=== PATIENT | female | born 1940 | race Caucasian/White ===

== ENCOUNTER 2019-10-10 10:35 | Emergency (ER) | payer MEDICARE, SELFPAY ==
--- NOTE | ~2019-10-10 | XR_ITS ---
XR hand LT min 3V 10/10/2019 11:13 Indication: Left hand pain. Bruising. Procedure: 3 views left hand Comparison: 12/03/2010 Findings: Osteopenia. There is side plate and screws transfixing the distal aspect of the ulna. No ac lillie fracture or traumatic malalignment. No focal soft tissue abnormality. No radiopaque foreign cole smith. Impression: 1: No acute fracture. Reviewed, dictated and finalized at location A. Impression: 1: No acute fracture.
[2019-10-10 11:00] VITALS: BP 125/80; PULSE 65; RESP 16; TEMP 35.7; O2SAT 98
--- NOTE | 2019-10-10 11:29 | ED.UPPEXIN ---
HPI - Extremity Injury (Upper) General Chief Complaint: Extremity Injury, Upper Stated Complaint: right hand injury Time Seen by Provider: 10/10/19 11:13 Source: patient and RN notes reviewed Mode of arrival: ambulatory Limitations: no limitations History of Present Illness HPI narrative: Daughter presents patient today complaining of injury to the left hand. She believes the patient, who he does have some dementia, got her left hand caught between the wall and her wheelchair 1 week ago. Reports she had a bump on her hand at the base of her thumb at that time, but bruising and swelling has worsened since onset. Patient did not have pain for the first several days, but pain began 2 to 3 days ago. Patient takes aspirin, but has not been taking anything special for pain or swelling. They have been occasionally applying a cool rag. Daughter states that bruising is resolving. Related Data Home Medications Medication Instructions Recorded Confirmed aspirin 81 mg PO DAILY 10/10/19 10/10/19 cholecalciferol (vitamin D3) 100 mcg PO DAILY 10/10/19 10/10/19 [Vitamin D3] levothyroxine 125 mcg PO DAILY 10/10/19 10/10/19 Allergies Allergy/AdvReac Type Severity Reaction Status Date / Time No Known Allergies Allergy Verified 10/10/19 11:06 Review of Systems Review of Systems: Narrative: CONSTITUTIONAL: Denies body aches, fever, chills, or sweats. EYES: Denies visual changes, redness, or discharge. ENT: Denies rhinorrhea, congestion, sore throat, or otalgia. CARDIOVASCULAR: Denies chest pain, palpitations, or edema. RESPIRATORY: Denies cough or dyspnea. GASTROINTESTINAL: Denies abdominal pain, nausea, vomiting, or diarrhea. GENITOURINARY: Denies dysuria or hematuria. SKIN: Denies rash, itching, or wounds. MUSCULOSKELETAL: Injury to left hand NEUROLOGIC: Denies headache, numbness, tingling, or weakness. PSYCH: Denies depression or anxiety. PMFSH Social History Social History Gender identity (if verbalized by the patient): Female Comments At time of signature, I have reviewed and agree with nursing past medical, surgical, social and family history unless otherwise noted. Please see nursing chart for further information. There is no relevant family history pertinent to the presenting complaint Exam Narrative: Exam Narrative: GENERAL: Well-appearing, well-nourished, and in no acute distress. HEAD: Normocephalic, atraumatic. EYES: EOMI. No redness or drainage. Conjunctivae normal. ENT: Mucous membranes pink and moist. NECK: Normal AROM. CHEST: No respiratory distress. EXTREMITIES: Left hand: Resolving ecchymosis to the forearm and wrist. Large firm hematoma to the dorsum of the hand at the base of the thumb measuring 4 x 4 cm round. Darker ecchymosis of the fingers, but this also seems to be resolving. Distal sensation intact. Capillary refill normal. Radial pulse normal. Full AROM of wrist and fingers with increased pain. Hematoma is tender to palpation. Patient does not seem to have bony tenderness of the hand or wrist. SKIN: Warm, dry, no rash. Capillary refill normal. Normal skin turgor. NEURO: No focal deficits. Alert and oriented x3 but does seem confused at times. PSYCH: Normal affect. No signs of depression or anxiety. Course Vital Signs Vital signs: Vital Signs Temperature 96.3 F L 10/10/19 11:00 Pulse Rate 65 10/10/19 11:00 Respiratory Rate 16 10/10/19 11:00 Blood Pressure 125/80 10/10/19 11:00 Pulse Oximetry 98 10/10/19 11:00 Temperature 96.3 F L 10/10/19 11:00 Pulse Rate 65 10/10/19 11:00 Respiratory Rate 16 10/10/19 11:00 Blood Pressure 125/80 10/10/19 11:00 Pulse Oximetry 98 10/10/19 11:00 Reviewed. Pt has been instructed to follow up with her PCP regarding her elevated blood pressure today. MDM - Extremity Injury (Upper) Differential Diagnosis Differential diagnosis: Likely other (Hand fracture, finger fracture, contusion, hematoma) Imaging Data
== END 2019-10-10 11:40 | disposition home or self-care (01) ==
PROVIDERS: Emergency Provider Nurse Practitioner; PCP Internal Medicine
DX: S60.222A Contusion of left hand, initial encounter (principal); X58.XXXA Exposure to other specified factors, initial encounter; F03.90 Unspecified dementia, unspecified severity, without behavioral disturbance, psychotic disturbance, mood disturbance, and anxiety; Z86.73 Personal history of transient ischemic attack (TIA), and cerebral infarction without residual deficits; E03.9 Hypothyroidism, unspecified
CPT/HCPCS: 73130; 99213; G0463